=== PATIENT | male | born 1985 | race Caucasian/White ===

== ENCOUNTER 2017-10-05 14:27 | Emergency (ER) | payer SELFPAY, MEDICAID | END 2017-10-05 16:14 | disposition home or self-care (01) | LOC: FTE 14:27 | DX: R20.2 Paresthesia of skin (principal); F17.210 Nicotine dependence, cigarettes, uncomplicated | CPT/HCPCS: 99283 ==

== ENCOUNTER 2018-08-11 22:51 | Emergency (ER) | payer SELFPAY | END 2018-08-12 00:52 | disposition left against medical advice (07) | LOC: FTE 22:51 | DX: Z53.21 Procedure and treatment not carried out due to patient leaving prior to being seen by health care provider (principal) ==